=== PATIENT | male | born 1985 | race Caucasian/White ===

== ENCOUNTER 2021-01-28 14:42 | Emergency (ER) | payer OTHER, MEDICAID | END 2021-01-28 17:45 | disposition home or self-care (01) | LOC: ER1 14:42 | DX: S39.012A Strain of muscle, fascia and tendon of lower back, initial encounter (principal); V49.40XA Driver injured in collision with unspecified motor vehicles in traffic accident, initial encounter; Y92.410 Unspecified street and highway as the place of occurrence of the external cause | CPT/HCPCS: 72131; 99284 ==